=== PATIENT | female | born 1990 | race Hispanic/Latino ===

== ENCOUNTER 2017-05-21 19:04 | Emergency (ER) | payer BC, OTHER ==
[2017-05-21] MEDS ORDERED: Ketorolac Tromethamine 60 MG/2 ML VIAL ONE (19:31)
--- NOTE | 2017-05-21 20:00 | RAD ---
LUMBAR SPINE THREE VIEWS: History: Low back pain. FINDINGS: Pedicles are intact. Vertebral body height and alignment are maintained. No acute fracture or disloc ation are evident. IMPRESSION: 1. No acute osseous abnormalities are demonstrated. POS: [facility]
== END 2017-05-21 20:21 | disposition home or self-care (01) ==
LOC: NAV ERS 19:04
DX: M54.5 Low back pain (principal); Z79.899 Other long term (current) drug therapy
CPT/HCPCS: 72100; 96372; J1885

== ENCOUNTER 2021-07-01 05:13 | Emergency (ER) | payer BC, SELFPAY | END 2021-07-01 05:40 | disposition home or self-care (01) | LOC: NAV ERS 05:13 | DX: J06.9 Acute upper respiratory infection, unspecified (principal); J02.8 Acute pharyngitis due to other specified organisms | CPT/HCPCS: 99283 ==

== ENCOUNTER 2022-03-02 08:34 | Emergency (ER) | payer BC, MEDICAID ==
[2022-03-02] MEDS ORDERED: Lidocaine 1% (PF) 30 ML VIAL ONE (08:57)
[2022-03-02] MEDS ORDERED: Bacitracin 1 PK ONE (09:09)
== END 2022-03-02 09:30 | disposition home or self-care (01) ==
LOC: NAV ERS 08:34
DX: S91.202A Unspecified open wound of left great toe with damage to nail, initial encounter (principal); W22.8XXA Striking against or struck by other objects, initial encounter
CPT/HCPCS: 11730; J2001